=== PATIENT | female | born 1995 | race Caucasian/White ===

== ENCOUNTER 2021-02-18 08:19 | Emergency (ER) | payer BC, SELFPAY ==
--- NOTE | ~2021-02-18 | XR_ITS ---
EXAMINATION: XR chest 2V EXAM DATE: 02/18/2021 08:58 INDICATION: Chest pain, pressure. TECHNIQUE: Frontal and lateral projections of the chest obtained and reviewed. There is no prior nayana dy for comparison. FINDINGS: The lungs are clear. There are no pleural effusions. The cardiomediastinal silhouette is within normal limits. There is no pneumothorax suspected. The bones and soft tissues are unremarkab le. IMPRESSION: No acute cardiopulmonary findings. Reviewed, dictated and finalized at location B. [employer]
--- NOTE | 2021-02-18 08:42 | ECG_ITS ---
Measurements Intervals [place] Rate: 107 P: 48 LA: 138 QRS: 25 QRSD: 98 T: -9 QT: 338 QTc: 452 Interpretive Statements SINUS TACHYCARDIA DELAYED PRECORDIAL R/S TRANSITION MINIMAL Q WAVES- INFERIOR LEADS BORDERLINE ST-T WAVE ABNORMALITY- ANT/INF LEADS BASELINE ARTIFACT- II, III, AVR, AVF, V1, V3-V6 ABNORMAL ECG Electronically Signed On 02-18-2021 9:15:46 [employer] by Adin Fritz D.O.
[2021-02-18 08:44] VITALS: BP 132/75; PULSE 121; RESP 16; TEMP 36.3; O2SAT 98
[2021-02-18 08:51] VITALS: PULSE 118
[2021-02-18 09:11] LABS: Basophils Percent Auto 0.5 % (0.2-1.2); Eosinophils Absolute Auto 0.1 K/mm3 (0-0.3); Eosinophils Percent Auto 1.6 % (0-4.4); Hematocrit 42.5 % (37.0-47.0); Hemoglobin 14.2 g/dL (12.0-15.0); Immature Granulocyte Absolute 0.02 K/mm3 (0.00-0.031); Immature Granulocyte Percent A 0.3 % (0-0.5); Lymphocytes Absolute Auto 2.59 K/mm3 (0.9-3.2); Lymphocytes Percent Auto 32.5 % (18.3-44.2); Mean Corpuscular HGB Conc 33.4 g/dl (32-36); Mean Corpuscular Hemoglobin 29.8 pg (26-34); Mean Corpuscular Volume 89.1 fl (80-100); Monocytes Absolute Auto 0.4 K/mm3 (0.1-0.6); Monocytes Percent Auto 5.4 % (2.6-8.5); Neutrophils Absolute Auto 4.8 K/mm3 (1.3-6.7); Neutrophils Percent Auto 59.7 % (45.5-73.1); Platelet Count Result 309 k/mm3 (150-375); Red Blood Count 4.77 M/mm3 (4.2-5.4); Red Cell Distribution Width 12.5 % (11.5-14.5)
[2021-02-18] MEDS: Please add drug allergy info to patient profile. 1 EACH XX (09:21)
[2021-02-18] MEDS: ASPIRIN 81 MG CHEWABLE TABLET 324 MG PO (09:21)
[2021-02-18 09:30] LABS: Alanine Aminotransferase 44 U/L (4-35); Albumin Level 4.6 g/dL (3.5-5.1); Alkaline Phosphatase 43 U/L (38-126); Anion Gap 15 mmol/L (8-16); Aspartate Amino Transferase 27 U/L (14-36); Bilirubin,Total 0.2 mg/dL (0.2-1.3); Blood Urea Nitrogen 8 mg/dL (7-17); Calcium 9.4 mg/dL (8.4-10.2); Carbon Dioxide 23 mmol/L (22-30); Chloride 102 mmol/L (98-107); Estimated CRCL calculation 127 ml/min; Estimated Glomerular Filt Rate > 60; Glucose 113 mg/dL (65-110); Lipase 82 U/L (23-300); Potassium 3.9 mmol/L (3.4-5.0); Sodium 140 mmol/L (137-145)
[2021-02-18 09:32] LABS: INR 0.9; Prothrombin Time 11.8 Seconds (11.1-14.7)
[2021-02-18 09:33] LABS: Partial Thromboplastin Time 27.3 SECONDS (22.3-36.8)
[2021-02-18 09:42] LABS: Troponin I < 0.012 ng/mL (0.000-0.034)
[2021-02-18 10:08] LABS: D Dimer 0.28 ug/mL (<0.48)
--- NOTE | 2021-02-18 10:19 | ED.GENADULT ---
HPI - General Adult General Chief complaint: Chest Pain Stated complaint: chest pain Time Seen by Provider: 02/18/21 09:09 History of Present Illness HPI narrative: Patient is a 25-year-old female who presents the emergency department with chief complaint of chest pain. Patient reports that yesterday she had a sharp sensation in her chest and then subsequently has had a tightness in her chest since then. The patient states that currently this stress pain is mild reports it is worse whenever she takes a deep breath or whenever she ambulates. Patient states that not improved by anything. The patient denies fever denies cough denies peripheral edema. Patient reports that she has been vaccinated for Covid. Patient denies family history for thromboembolic disorders. Related Data Allergies Allergy/AdvReac Type Severity Reaction Status Date / Time No Known Allergies Allergy Verified 02/18/21 09:09 Review of Systems Review of Systems: A 10 system review of systems was completed on the patient and is negative except for what is stated in the HPI. Nursing and ancillary documentation was reviewed. Exam Narrative: GENERAL: Well-appearing, well-nourished, and in no acute distress. HEAD: Normocephalic, atraumatic. EYES: PERRLA and EOMI. ENT: Nares clear, no rhinorrhea or epistaxis. Mucous membranes moist. NECK: Supple. CHEST: Clear to auscultation. No respiratory distress. HEART: Regular rate and rhythm. No murmur heard. Normal peripheral pulses. ABDOMEN: Soft, nontender, nondistended, normal active bowel sounds. EXTREMITIES: Normal range of motion. No edema. SKIN: Warm, dry, no rash. NEURO: No focal deficits. Alert and oriented x3. PSYCH: Normal mood and affect. Course Course Emergency Course: EKG is sinus tachycardia with rate [address] elevation or ST depression Chest x-ray shows no evidence of focal infiltrate or finding Initial troponin is negative D-dimer is negative Patient has a heart score of 1 Vital Signs Vital signs: Vital Signs Temperature 36.3 C L 02/18/21 08:44 Pulse Rate 121 H 02/18/21 08:44 Respiratory Rate 16 02/18/21 08:44 Blood Pressure 132/75 02/18/21 08:44 Pulse Oximetry 98 02/18/21 08:44 Temperature 36.3 C L 02/18/21 08:44 Pulse Rate 118 H 02/18/21 08:51 Respiratory Rate 16 12/15/21 08:44 Blood Pressure 132/75 02/18/21 08:44 Pulse Oximetry 98 02/18/21 08:44 Medical Decision Making Vital Signs Vital Signs: Vital Signs Temperature 36.3 C L 02/18/21 08:44 Pulse Rate 121 H 02/18/21 08:44 Respiratory Rate 16 02/18/21 08:44 Blood Pressure 132/75 02/18/21 08:44 Pulse Oximetry 98 02/18/21 08:44 Temperature 36.3 C L 02/18/21 08:44 Pulse Rate 118 H 02/18/21 08:51 Respiratory Rate 16 02/18/21 08:44 Blood Pressure 132/75 02/18/21 08:44 Pulse Oximetry 98 02/18/21 08:44 Lab Data Result diagrams: 02/18/21 09:05 02/18/21 09:05 Labs: Lab Results 02/18/21 02/18/21 02/18/21 Range/Units 09:00 09:05 09:05 WBC 8.0 (4.5-10.0) K/mm3 RBC 4.77 (4.2-5.4) M/mm3 Hgb 14.2 (12.0-15.0) g/dL Hct 42.5 (37.0-47.0) % MCV 89.1 (80-100) fl MCH 29.8 (26-34) pg MCHC 33.4 (32-36) g/dl RDW 12.5 (11.5-14.5) % Plt Count 309 (150-375) k/mm3 MPV 9.0 (7.4-10.4) fl Immature Gran % (Auto) 0.3 (0-0.5) % Neut % (Auto) 59.7 (45.5-73.1) % Lymph % (Auto) 32.5 (18.3-44.2) % [place] % (Auto) 5.4 (2.6-8.5) % Eos % (Auto) 1.6 (0-4.4) % Baso % (Auto) 0.5 (0.2-1.2) % Lymph # (Auto) 2.59 (0.9-3.2) K/mm3 [place] # (Auto) 0.4 (0.1-0.6) K/mm3 Eos # (Auto) 0.1 (0-0.3) K/mm3 Baso # (Auto) 0.0 (0.0-0.1) K/mm3 Abs Immat Gran (auto) 0.02 (0.00-0.031) K/mm3 Absolute Neuts (auto) 4.8 (1.3-6.7) K/mm3 Absolute Nucleated RBC 0.0 (0.0-0.012) K/mm3 Nucleated RBC % 0.0 (0.0-0.2) % PT 11.8 (11.1-14.7) Seconds INR 0.9 APTT
[2021-02-18 11:20] VITALS: BP 132/75; PULSE 99; RESP 18; O2SAT 97
== END 2021-02-18 11:21 | disposition home or self-care (01) ==
PROVIDERS: Emergency Provider Emergency Medicine; PCP Family Medicine
DX: R07.89 Other chest pain (principal)
CPT/HCPCS: 36415; 71046; 80053; 83690; 84484; 85025; 85380; 85610; 85730; 93005; 99284; A9270